=== PATIENT | male | born 1975 | race Caucasian/White ===

== ENCOUNTER → 2017-10-08 09:55 | Outpatient (CLI) | payer SELFPAY ==
[2017-10-08 10:09] VITALS: BP 162/104; PULSE 84; RESP 16; TEMP 37.1; O2SAT 100; BMI 35.7
--- NOTE | 2017-10-08 10:33 | HTC.HP_ITS ---
Problem List (1) Hemophilia B in male Status: Chronic Subjective Date of Service:: 10/08/17 Chief Complaint: F/u for Hemophilia B. 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 He feels well, required one replacement therapy for Dental work last year. Has seen a Dentist this year with no problems. Health History: Past Medical History (Last Reviewed 10/08/17 @ 10:08 by Lolly Calhoun) Hemophilia B in male (Acute) Family History (Last Reviewed 10/08/17 @ 10:08 by Lolly Calhoun) Father CVA (cerebral vascular accident) Heart disease Hypertension Mother Arthritis Allergies/Adverse Reactions: Allergy/AdvReac Type Severity Reaction Status Date / Time aspirin AdvReac Other Verified 10/08/17 09:29 ibuprofen AdvReac Other Verified 10/08/17 09:30 Home Medications Medication Instructions Recorded Multivitamin [Multiple Vitamins] PO DAILY 10/08/17 Risk Factors Social History Smoking Status Never smoker Tobacco Risk Data: Tobacco Risk Smoking Status Never smoker Type of tobacco: Smokeless tobacco usage: Items/Day: Year started: Years used: Counseled to quit/cut down: Reason for no counseling performed: Reason for no pharmacotherapy: Tobacco use comments: Passive smoke exposure: Substance Risk Drug use: Caffeine use [drinks/day]: 0 Alcohol use: No Type of alcohol: Drinks per day: Has patient felt the need to cut down: Has the patient been annoyed by complaints: Has the patient felt guilty about drinking: 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: Comments: Review of Systems Constitutional:: Denies: Fever, Sweats, Weight loss, Appetite change, Chills Cardiovascular:: Denies: Chest pain, Palpitations, Dyspnea on exertion, Orthopnea, PND, Shortness of breath Respiratory: Denies: Cough, Hemoptysis, Shortness of Breath, Wheezing Gastrointestinal:: Denies: Abdominal pain, Nausea, Vomiting, Diarrhea, Constipation, Hematochezia Genitourinary: Denies: Dysuria, Hematuria, 15, Flank pain Musculoskeletal:: Denies: Back pain, Myalgia, Arthralgia Skin: Denies: Rash, Skin Changes, Wounds Neurological:: Denies: Headache, Dizziness, Visual changes, Tinnitus, Hearing loss Psychiatric: Denies: Anxiety, Depression, Homicidal Ideations, Suicidal Ideations Vital Signs Height 5 ft 9 in Weight: 109.769 kg Weight in Pounds 242.0 lbs Pulse Ox 100 Temperature 98.7 F Pulse Rate 84 Respiratory Rate 16 Blood Pressure 162/104 Blood Pressure Position Sitting - Physical Exam General: Alert, Oriented x3, No apparent distress HEENT: Atraumatic, PERRLA, EOMI, Normocephalic Oropharynx:: Dry mucosa Neck:: Supple, Trachea midline. Negative for: JVD, bilateral Cardiac:: Regular rate, Regular rhythm, Normal S1, Normal S2. Negative for: Murmur Lungs: Clear to auscultation, Excusion symmetrical. Negative for: Rhonchi, Wheezes Abdomen:: Bowel sounds x 4, Soft, Non-tender, Non-distended. Negative for: Hepatosplenomegaly Extremities:: Negative for: Cyanosis, Edema Neurological: Neuro grossly intact Skin:: Negative for: Lesions, Rash, Petechiae, Ecchymosis Psychiatric:: Appropriate affect, Euthymic Lymphatics:: Negative for: Cervical lymphadenopathy, Supraclavicular lymphadenopathy, Axillary lymphadenopathy Assessment and Plan Hemophilia B, clinically stable. Plan is to continue expectant management with factor replacement as needed. RTC 1 year. Medications: Prescriptions This Visit Medication Instructions Recorded Multivitamin [Multiple Vitamins] PO DAILY 10/08/17 Primary Care Provider: Patience Arteaga MD Referring Provider: Bill Kong MD
== END ==
PROVIDERS: Visit Provider Internal Medicine Medical Oncology
DX: D67 Hereditary factor IX deficiency (principal)

== ENCOUNTER → 2018-09-30 12:24 | Outpatient (CLI) | payer SELFPAY ==
[2018-09-30 12:34] VITALS: BP 133/89; PULSE 77; RESP 14; TEMP 36.6; O2SAT 97; BMI 35.1
--- NOTE | 2018-09-30 13:20 | WMO.HTC_ITS ---
Problem List (1) Hemophilia B in male Status: Chronic Subjective Date of Service:: 09/30/18 Chief Complaint: F/u for Hemophilia B. History of Present Illness: 43y.o.man with Hemophilia B, comes in for follow up. Had Dental work a few days ago, needs crown work. No factor replacement in the last year. Health History: Past Medical History (Last Updated 09/30/18 @ 12:34 by Lolly Calhoun) Hypertension (Chronic) Hemophilia B in male (Acute) Family History (Last Reviewed 09/30/18 @ 12:32 by Lolly Calhoun) Father CVA (cerebral vascular accident) Heart disease Hypertension Mother Arthritis Allergies/Adverse Reactions: Allergy/AdvReac Type Severity Reaction Status Date / Time aspirin AdvReac Other Verified 10/08/17 09:29 ibuprofen AdvReac Other Verified 10/08/17 09:30 Risk Factors Social History Smoking Status Never smoker Tobacco Risk Data: Tobacco Risk Smoking Status Never smoker Type of tobacco: Smokeless tobacco usage: Items/Day: Year started: Years used: Counseled to quit/cut down: Reason for no counseling performed: Reason for no pharmacotherapy: Tobacco use comments: Passive smoke exposure: Substance Risk Drug use: No Caffeine use [drinks/day]: 1 Alcohol use: No Type of alcohol: Drinks per day: Has patient felt the need to cut down: Has the patient been annoyed by complaints: Has the patient felt guilty about drinking: 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: Comments: Review of Systems Constitutional:: Denies: Fever, Sweats, Weight loss, Appetite change, Chills Cardiovascular:: Denies: Chest pain, Palpitations, Dyspnea on exertion, Orthopnea, PND, Shortness of breath Respiratory: Denies: Cough, Hemoptysis, Shortness of Breath, Wheezing Gastrointestinal:: Denies: Abdominal pain, Nausea, Vomiting, Diarrhea, Constipation, Hematochezia Genitourinary: Denies: Dysuria, Hematuria, 15, Flank pain Musculoskeletal:: Denies: Back pain, Myalgia, Arthralgia Skin: Denies: Rash, Skin Changes, Wounds Neurological:: Denies: Headache, Dizziness, Visual changes, Tinnitus, Hearing loss Psychiatric: Denies: Anxiety, Depression, Homicidal Ideations, Suicidal Ideations Vital Signs Height 5 ft 9 in Weight: 107.955 kg Weight in Pounds 238.0 lbs Pulse Ox 97 Temperature 97.9 F Pulse Rate 77 Respiratory Rate 14 Blood Pressure 133/89 Blood Pressure Position Sitting - Physical Exam General: Alert, Oriented x3, No apparent distress HEENT: Atraumatic, PERRLA, EOMI, Normocephalic Oropharynx:: Dry mucosa Neck:: Supple, Trachea midline. Negative for: JVD, bilateral Cardiac:: Regular rate, Regular rhythm, Normal S1, Normal S2. Negative for: Murmur Lungs: Clear to auscultation, Excusion symmetrical. Negative for: Rhonchi, Wheezes Abdomen:: Bowel sounds x 4, Soft, Non-tender, Non-distended. Negative for: Hepatosplenomegaly Extremities:: Negative for: Cyanosis, Edema Neurological: Neuro grossly intact Skin:: Negative for: Lesions, Rash, Petechiae, Ecchymosis Psychiatric:: Appropriate affect, Euthymic Lymphatics:: Negative for: Cervical lymphadenopathy, Supraclavicular lymphadenopathy, Axillary lymphadenopathy Therapy ROM Screening - Subjective Subjective:: Pt states he is doing well- no concerns at this time. - Objective Right shoulder flex:: 160 Left shoulder flex:: 160 Right shoulder extension:: 65 Left shoulder extension:: 60 Right elbox flex/ext:: 140/0 Left elbox flex/ext:: 138/0 Right elbow circumference:: 30cm Left elbow circumference:: 30cm Right forearm sup/pron:: WFL Left forearm sup/pron:: WFL Right knee flexion:: 115 Left knee flexion:: 115 Right knee circumference:: 41cm Left knee circumference:: 41cm Right ankle dorsiflexion:: 20 Left ankle dorsiflexion:: 20 Right ankle Plan-flex:: 45 Left ankle Plan-flex:: 45 Right ankle circumference:: NT boots on Left ankle circumference:: NT boots on Right hip flexion:: 90 Left hip flexion:: 88 Right hip extension:: 20 Left hip extension:: 20 - Assessment Assessment:: Pt demo all ROM WNL, no concerns at this time. Assessment and Plan Hemophilia B, clinically stable. Plan is to continue expectant management with factor replacement as needed. RTC 1 yr. Medications: Prescriptions This Visit Medication Instructions Recorded Lisinopril [Zestril] 10 mg PO QHS 09/30/18 Primary Care Provider: Patience Arteaga MD Referring Provider:
== END ==
PROVIDERS: Visit Provider Internal Medicine Medical Oncology
DX: D67 Hereditary factor IX deficiency (principal)

== ENCOUNTER → 2019-09-29 11:45 | Outpatient (CLI) | payer OTHER, SELFPAY ==
[2018-09-30 12:34] VITALS: BMI 35.1
--- NOTE | 2019-09-29 11:50 | HTC.HP_ITS ---
- Problem List (1) Hemophilia B in male Status: Chronic Subjective Date of Service:: 09/29/19 Chief Complaint: Hemophilia annual follow-up History of Present Illness: Mild hemophilia B, on-demand factor replacement, annual follow-up No factor use past year Health History: Past Medical History (Last Updated 09/30/18 @ 12:34 by Lolly Calhoun) Hemophilia B in male (Acute) Hypertension (Chronic) Family History (Last Reviewed 09/30/18 @ 12:32 by Lolly Calhoun) Father CVA (cerebral vascular accident) Heart disease Hypertension Mother Arthritis Social History Smoking Status Never smoker Allergies/Adverse Reactions: Allergy/AdvReac Type Severity Reaction Status Date / Time aspirin AdvReac Other Verified 09/29/19 11:54 ibuprofen AdvReac Other Verified 09/29/19 11:54 Risk Factors Social History Smoking Status Never smoker Tobacco Risk Data: Tobacco Risk Smoking Status Never smoker Type of tobacco: Smokeless tobacco usage: Items/Day: Year started: Years used: Counseled to quit/cut down: Reason for no counseling performed: Reason for no pharmacotherapy: Tobacco use comments: Passive smoke exposure: Substance Risk Drug use: Caffeine use [drinks/day]: Alcohol use: Type of alcohol: Drinks per day: Has patient felt the need to cut down: Has the patient been annoyed by complaints: Has the patient felt guilty about drinking: 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: Comments: Review of Systems Constitutional:: Denies: Fever, Sweats, Weight loss, Appetite change, Chills Cardiovascular:: Denies: Chest pain, Palpitations, Dyspnea on exertion, Orthopnea, PND, Shortness of breath Respiratory: Denies: Cough, Hemoptysis, Shortness of Breath, Wheezing Gastrointestinal:: Denies: Abdominal pain, Nausea, Vomiting, Diarrhea, Constipation, Hematochezia Genitourinary: Denies: Dysuria, Hematuria, 15, Flank pain Musculoskeletal:: Denies: Back pain, Myalgia, Arthralgia Skin: Denies: Rash, Skin Changes, Wounds Neurological:: Denies: Headache, Dizziness, Visual changes, Tinnitus, Hearing loss Psychiatric: Denies: Anxiety, Depression, Homicidal Ideations, Suicidal Ideations - Physical Exam General: Alert, Oriented x3, No apparent distress HEENT: Atraumatic, PERRLA, EOMI, Normocephalic Oropharynx:: Dry mucosa Neck:: Supple, Trachea midline. Negative for: JVD, bilateral Cardiac:: Regular rate, Regular rhythm, Normal S1, Normal S2. Negative for: Murmur Lungs: Clear to auscultation, Excusion symmetrical. Negative for: Rhonchi, Wheezes Abdomen:: Soft, Non-tender, Non-distended. Negative for: Hepatosplenomegaly Extremities:: Negative for: Cyanosis, Edema Neurological: Neuro grossly intact Skin:: Negative for: Lesions, Rash, Petechiae, Ecchymosis Psychiatric:: Appropriate affect, Euthymic Lymphatics:: Negative for: Cervical lymphadenopathy, Supraclavicular lymphadenopathy, Axillary lymphadenopathy Assessment and Plan Hemophilia annual screening visit. Reviewed: - On-demand therapy. - Appropriate oral hygiene and regular dental care is essential. - An appropriate exercise regimen encouraged for maintenance of a healthy weight, cardiovascular risk reduction, and positive effects on strength, flexibility, balance, joint stabilization, bone density, socialization, and psychological health. - Medicines that increase the risk of bleeding should be avoided namely anticoagulants, aspirin, and other nonsteroidal anti-inflammatory drugs (NSAIDs). - Herbal remedies and [id number] supplements such as fish oil, may increase bleeding risk. - Pain can be treated with local measures (eg, cold packs, immobilization, splinting), and acetaminophen. - Cardiovascular disease prevention : focus on diet, exercise, smoking avoidance, and control of hypertension and hypercholesterolemia. - Planning for invasive procedures and elective surgery. Patient was also evaluated by the Hemophilia multidisciplinary team on site and Dr Jerry via video conferencing. Primary Care Provider: No Primary Care Phys Referring Provider:
[2019-09-29 11:56] VITALS: BP 133/91; PULSE 74; RESP 16; TEMP 37; O2SAT 96; BMI 35.6
== END ==
PROVIDERS: Visit Provider Internal Medicine Hematology & Oncology
DX: D67 Hereditary factor IX deficiency (principal)